=== PATIENT | female | born 1935 | race African-American/Black ===

== ENCOUNTER 2018-03-31 15:57 | Emergency (ER) | payer MEDICARE ==
[~2018-03-31] VITALS: Ht 170.2 cm; Wt 86.0 kg
[~2018-03-31 15:57] MED LIST: ALPR-392 PO; ASPI-1158 PO; FURO-152 PO; GABA-290 PO; METO-396; OLME1TAB14 PO; POTA10TA15 PO; TRAM50TA3 PO
[2018-03-31 22:02] VITALS: BP 166/64
== END 2018-03-31 22:00 | disposition home or self-care (01) ==
LOC: ER 15:57 → CANBEDREQ 22:11
DX: R60.0 Localized edema (principal); I11.0 Hypertensive heart disease with heart failure; I50.9 Heart failure, unspecified; S81.811A Laceration without foreign body, right lower leg, initial encounter; X58.XXXA Exposure to other specified factors, initial encounter; Y93.9 Activity, unspecified; Y92.9 Unspecified place or not applicable; M54.40 Lumbago with sciatica, unspecified side; E66.9 Obesity, unspecified; Z68.29 Body mass index [BMI] 29.0-29.9, adult; Z79.899 Other long term (current) drug therapy; Z88.8 Allergy status to other drugs, medicaments and biological substances; Z79.82 Long term (current) use of aspirin
CPT/HCPCS: 93970; 99284

== ENCOUNTER 2019-01-10 14:47 | Inpatient (IN) | payer MEDICARE, BC ==
[~2019-01-10] VITALS: Ht 172.7 cm; Wt 114.9 kg
[2019-01-10] VITALS (15 sets, daily range): BP systolic 95–144; BP diastolic 50–86
[~2019-01-10 14:47] MED LIST changes: +ACET-2178 PO; -ALPR-392 PO; -ASPI-1158 PO; +BETH5TAB10 PO; +CHOL200074 MT; -FURO-152 PO; -GABA-290 PO; -METO-396; -OLME1TAB14 PO; -POTA10TA15 PO; +TAMS-11 MT; -TRAM50TA3 PO
[2019-01-10] MEDS ORDERED: ACETAMINOPHEN 650MG SUPP PR STA (15:08)
[2019-01-10] MEDS ORDERED: PIPERACILLIN/TAZ 3.375G PREMIX 50 ML IV ONE (15:15)
[2019-01-10] MEDS ORDERED: VANCOMYCIN 1 G PREMIX 200 ML IV ONE (15:15)
[2019-01-10] MEDS ORDERED: HYDROCORTISONE SOD SUCCINATE 100 MG/2 ML VIAL IV ONE (15:15)
[2019-01-10] MEDS ORDERED: SODIUM CHLORIDE 0.9% 1000ML BAG (SEPSIS BOLUS) IV ONE (15:15)
[2019-01-10 15:35] LABS: HEMATOCRIT. 31.2 % (36.0-48.0); MEAN CORPUSCULAR HEMOGLOBIN 29.9 pg (28.0-32.0); MEAN CORPUSCULAR VOLUME 93.3 fL (81.0-99.0); MEAN PLATELET VOLUME 7.3 fl (7.4-10.4); PLATELET 277 x1000/uL (130-400); RED BLOOD CELL COUNT 3.34 mill/uL (4.2-5.4); RED CELL DISTRIBUTION WIDTH 15.1 % (11.6-14.6)
[2019-01-10 15:41] LABS: CHLORIDE 108 mEq/L (98-107)
[2019-01-10 15:42] LABS: INR 1.2; PROTHROMBIN TIME 12.6 sec (9.6-11.0)
[2019-01-10] MEDS ORDERED: KCL 20MEQ/100ML PREMIX 100 ML IV ONE ×2 (16:00→23:15)
[2019-01-10 16:23] LABS: CLARITY URINE CLOUDY (CLEAR); COLOR URINE YELLOW (YELLOW); KETONES URINE TRACE (NEGATIVE); LEUKOCYTE ESTERASE URINE 2+ (NEGATIVE); NITRITE URINE NEGATIVE (NEGATIVE); OCCULT BLOOD URINE TRACE (NEGATIVE); PH URINE 5.5 (4.5-8.0); PROTEIN URINE 1+ (NEGATIVE); SPECIFIC GRAVITY URINE 1.021 (1.005-1.030)
[2019-01-10 17:29] LABS: PLATELET ESTIMATE NORMAL
[2019-01-10 22:30] LABS: BG BASE EXCESS -4.2 mmol/L (-2.0-2.0); BG CARBOXYHEMOGLOBIN 0.4 % (0.5-1.5); BG DEOXYHEMOGLOBIN 3.1 % (0.0-5.0); BG FRACTION INSPIRED OXYGEN 21; BG HCO3 ACT 18.5 mmol/L (22.0-26.0); BG METHEMOGLOBIN 0.3 % (0.0-1.5); BG OXYGEN SATURATION 96.9 % (92.0-98.5); BG OXYHEMOGLOBIN 96.2 % (94.0-97.0); BG PCO2 27.4 mmHg (35.0-45.0); BG PH 7.448 (7.350-7.450); BG PO2 83.6 mmHg (75.0-100.0); BG SAMPLE SITE LEFT RADIAL; BG TOTAL HEMOGLOBIN 11.9 g/dL (12.0-18.0); BG VENT MODE ROOM AIR
[2019-01-10] MEDS ORDERED: MULT-230 MT (22:52)
[2019-01-10] MEDS ORDERED: BETH25TA MT (22:52)
[2019-01-10] MEDS ORDERED: ASCO-339 MT (22:52)
[2019-01-10] MEDS ORDERED: ZINC220T MT (22:52)
[2019-01-10] MEDS ORDERED: POTA25TA8 MT (22:52)
[2019-01-10] MEDS ORDERED: CHOL200059 MT (22:52)
[2019-01-10] MEDS ORDERED: IPRATROPIUM/ALBUTEROL 0.5-3(2.5)MG/3ML NEB INH PRN (23:00)
[2019-01-10] MEDS ORDERED: ONDANSETRON HCL 4MG/2ML INJ IV PRN (23:00)
[2019-01-10] MEDS ORDERED: VANCOMYCIN 1 G PREMIX 200 ML IV SCH (23:00)
[2019-01-10] MEDS ORDERED: POTASSIUM CHLORIDE INJ 40 MEQ in DEXT 5% WATER 500 ML IV ONE (23:15)
[2019-01-11] VITALS (94 sets, daily range): BP systolic 91–164; BP diastolic 38–97
[2019-01-11] MEDS: PIPERACILLIN/TAZ 3.375G PREMIX 50 ML IV SCH ×3 (00:10→16:08)
[2019-01-11] MEDS: DEXT 5%/0.45% NACL KCL 30MEQ/L 1,000 ML IV SCH ×2 (00:10→14:32)
[2019-01-11] MEDS ORDERED: DILTIAZEM HCL 5MG/ML 5ML VIAL IV NR (00:15)
[2019-01-11] MEDS: DILTIAZEM HCL 125 MG in DEXT 5% WATER 100 ML IV PRN ×3 (00:47→17:24)
[2019-01-11] MEDS ORDERED: POTASSIUM CHLORIDE INJ 40 MEQ in DEXT 5% WATER 500 ML IV NR ×2 (01:00→20:00)
[2019-01-11] MEDS ORDERED: VANCOMYCIN 1250MG in DEXTROSE 5% WATER 250ML IV NR (02:00)
[2019-01-11] MEDS: MORPHINE SULFATE 2 MG/ML CPJ (NOT FOR IM USE) IV PRN ×2 (02:09→15:17)
[2019-01-11 05:46] LABS: HEMATOCRIT. 29.1 % (36.0-48.0); HEMOGLOBIN. 9.7 g/dL (12.0-16.0); MEAN CORPUSCULAR HEMOGLOBIN 30.3 pg (28.0-32.0); MEAN CORPUSCULAR VOLUME 91.1 fL (81.0-99.0); MEAN PLATELET VOLUME 7.9 fl (7.4-10.4); PLATELET 260 x1000/uL (130-400); RED CELL DISTRIBUTION WIDTH 14.7 % (11.6-14.6)
[2019-01-11 05:50] LABS: CHLORIDE 107 mEq/L (98-107)
[2019-01-11 06:00] LABS: T4 FREE 1.52 ng/dL (0.76-1.46)
[2019-01-11] MEDS: ENOXAPARIN 40MG/0.4ML SYR SUBCUT SCH (08:09)
[2019-01-11] MEDS ORDERED: POTASSIUM CHLORIDE INJ 40 MEQ in DEXT 5% WATER 500 ML IV ONE (08:30)
[2019-01-11] MEDS ORDERED: KCL 20MEQ/100ML PREMIX 100 ML IV ONE (08:30)
[2019-01-11 09:35] LABS: PLATELET ESTIMATE NORMAL
[2019-01-11] MEDS ORDERED: POTASSIUM CHLORIDE INJ 60 MEQ in DEXT 5% WATER 500 ML IV SCH (10:00)
[2019-01-11] MEDS: ASPIRIN 81MG TABLET PO SCH (11:15)
[2019-01-11] MEDS ORDERED: LIDOCAINE HCL 1% 20ML VIAL (Pyxis) INJ ONE (11:55)
[2019-01-11] MEDS ORDERED: DIPHENHYDRAMINE 50MG/ML VIAL IV PRN (13:00)
[2019-01-11] MEDS ORDERED: HYDRALAZINE 20MG/ML VIAL IV PRN (13:00)
[2019-01-11] MEDS ORDERED: ACETAMINOPHEN 650MG SUPP PR PRN (13:00)
[2019-01-11] MEDS ORDERED: BISACODYL 10MG SUPP PR PRN (13:00)
[2019-01-11] MEDS ORDERED: GUAIFENESIN 200MG/10ML SUGAR FREE UDC PO PRN (13:00)
[2019-01-11] MEDS ORDERED: DEXTROSE 50% WATER 50ML SYRINGE IV PRN (13:15)
[2019-01-11 13:22] LABS: BG BASE EXCESS -2.8 mmol/L (-2.0-2.0); BG CARBOXYHEMOGLOBIN 0.3 % (0.5-1.5); BG DEOXYHEMOGLOBIN 2.5 % (0.0-5.0); BG FRACTION INSPIRED OXYGEN 21; BG METHEMOGLOBIN 0.2 % (0.0-1.5); BG OXYGEN SATURATION 97.5 % (92.0-98.5); BG PH 7.422 (7.350-7.450); BG PO2 93.1 mmHg (75.0-100.0); BG SAMPLE SITE LEFT RADIAL; BG TOTAL HEMOGLOBIN 10.3 g/dL (12.0-18.0); BG VENT MODE ROOM AIR
[2019-01-11] MEDS ORDERED: ENOXAPARIN 40MG/0.4ML SYR SUBCUT SCH (14:00)
[2019-01-11] MEDS: BLOOD SUGAR DIAGNOSTIC STRIP TEST SCH ×2 (16:07→20:59)
[2019-01-11] MEDS: INSULIN LISPRO 100 UNITS/ML SUBCUT SCH ×2 (16:07→20:59)
[2019-01-11] MEDS: DILTIAZEM HCL 30MG TABLET PO SCH (18:00)
[2019-01-11 22:03] LABS: *AMPHETAMINES SCREEN URINE NEGATIVE (NEGATIVE); *BARBITURATES SCREEN URINE NEGATIVE (NEGATIVE); *BENZODIAZEPINES SCREEN URINE PRESUMTIVE POSITIVE (NEGATIVE); *COCAINE SCREEN URINE NEGATIVE (NEGATIVE); CANNABINOID URINE SCREEN NEGATIVE (NEGATIVE); METHADONE URINE SCREEN NEGATIVE (NEGATIVE); OPIATES URINE SCREEN PRESUMTIVE POSITIVE (NEGATIVE); PHENCYCLIDINE URINE SCREEN NEGATIVE (NEGATIVE)
[2019-01-12] VITALS (72 sets, daily range): BP systolic 86–174; BP diastolic 39–104
[2019-01-12] MEDS: PIPERACILLIN/TAZ 3.375G PREMIX 50 ML IV SCH ×2 (00:24→08:28)
[2019-01-12] MEDS: DILTIAZEM HCL 30MG TABLET PO SCH ×4 (00:24→18:00)
[2019-01-12] MEDS: DEXT 5%/0.45% NACL KCL 30MEQ/L 1,000 ML IV SCH ×2 (00:24→16:33)
[2019-01-12] MEDS ORDERED: VANCOMYCIN 1 G PREMIX 200 ML IV SCH (02:00)
[2019-01-12 05:33] LABS: HEMATOCRIT. 28.2 % (36.0-48.0); HEMOGLOBIN. 9.3 g/dL (12.0-16.0); MEAN CORPUSCULAR VOLUME 91.3 fL (81.0-99.0); MEAN PLATELET VOLUME 8.2 fl (7.4-10.4); PLATELET 211 x1000/uL (130-400); RED BLOOD CELL COUNT 3.09 mill/uL (4.2-5.4); RED CELL DISTRIBUTION WIDTH 15.1 % (11.6-14.6)
[2019-01-12] MEDS: INSULIN LISPRO 100 UNITS/ML SUBCUT SCH ×5 (05:37→21:00)
[2019-01-12] MEDS: BLOOD SUGAR DIAGNOSTIC STRIP TEST SCH ×4 (05:37→20:55)
[2019-01-12] MEDS: MORPHINE SULFATE 2 MG/ML CPJ (NOT FOR IM USE) IV PRN ×2 (06:03→10:17)
[2019-01-12 06:06] LABS: CHLORIDE 109 mEq/L (98-107)
[2019-01-12 06:15] LABS: CREATINE KINASE 58 IU/L (26-192); HDL CHOLESTEROL 20 mg/dL (40-59); LDL CHOLESTEROL 51 mg/dL (5-100)
[2019-01-12] MEDS: ENOXAPARIN 40MG/0.4ML SYR SUBCUT SCH (08:28)
[2019-01-12] MEDS: ASPIRIN 81MG TABLET PO SCH (08:28)
[2019-01-12] MEDS: DILTIAZEM HCL 125 MG in DEXT 5% WATER 100 ML IV PRN (09:13)
[2019-01-12] MEDS: ACETAMINOPHEN 325MG TABLET PO PRN (09:15)
[2019-01-12 12:45] LABS: NUCLEATED RED BLOOD CELLS 1 /100 WBC; PLATELET ESTIMATE NORMAL
[2019-01-12] MEDS: CEFAZOLIN 2,000 MG in DEXT 5% WATER 100 ML IV SCH ×2 (14:15→22:41)
[2019-01-12] MEDS ORDERED: ENOXAPARIN 40MG/0.4ML SYR SUBCUT NR (15:15)
[2019-01-12] MEDS: ENOXAPARIN 80MG/0.8ML SYR SUBCUT SCH (22:29)
[2019-01-13] VITALS (13 sets, daily range): BP systolic 97–152; BP diastolic 47–80
[2019-01-13] MEDS: DILTIAZEM HCL 30MG TABLET PO SCH ×5 (00:16→23:37)
[2019-01-13] MEDS: DEXT 5%/0.45% NACL KCL 30MEQ/L 1,000 ML IV SCH ×2 (06:16→19:53)
[2019-01-13] MEDS: CEFAZOLIN 2,000 MG in DEXT 5% WATER 100 ML IV SCH ×3 (06:17→21:12)
[2019-01-13] MEDS: BLOOD SUGAR DIAGNOSTIC STRIP TEST SCH ×4 (06:22→20:52)
[2019-01-13] MEDS: INSULIN LISPRO 100 UNITS/ML SUBCUT SCH ×4 (07:20→20:52)
[2019-01-13 07:55] LABS: HEMATOCRIT. 26.8 % (36.0-48.0); LYMPHOCYTES % 8.7 % (20.0-50.0); MEAN CORPUSCULAR HEMOGLOBIN 30.3 pg (28.0-32.0); MEAN CORPUSCULAR VOLUME 90.8 fL (81.0-99.0); MEAN PLATELET VOLUME 8.3 fl (7.4-10.4); MONOCYTES % 9.6 % (2.0-8.0); NEUTROPHILS % 79.7 % (40.0-76.0); PLATELET 206 x1000/uL (130-400); RED BLOOD CELL COUNT 2.96 mill/uL (4.2-5.4); RED CELL DISTRIBUTION WIDTH 15.3 % (11.6-14.6)
[2019-01-13 08:26] LABS: CHLORIDE 109 mEq/L (98-107)
[2019-01-13] MEDS: ASPIRIN 81MG TABLET PO SCH (09:08)
[2019-01-13] MEDS: ZINC SULFATE 220 MG ( 50 ) CAPSULE PO SCH (09:08)
[2019-01-13] MEDS: ASCORBIC ACID 500 MG TABLET PO SCH (09:08)
[2019-01-13] MEDS: ENOXAPARIN 80MG/0.8ML SYR SUBCUT SCH ×2 (09:09→21:13)
[2019-01-13] MEDS: ACETAMINOPHEN 325MG TABLET PO PRN (10:00)
[2019-01-13] MEDS: HYDROCODONE/ACETAMINOPHEN 5/325MG TABLET PO PRN ×2 (12:27→22:10)
[2019-01-13] MEDS: NYSTATIN POWDER 15GM TOP SCH (17:58)
[2019-01-13] MEDS: GABAPENTIN 100MG CAPSULE PO SCH (17:58)
[2019-01-14] VITALS (18 sets, daily range): BP systolic 108–141; BP diastolic 54–81
[2019-01-14] MEDS: DILTIAZEM HCL 30MG TABLET PO SCH ×2 (05:55→17:54)
[2019-01-14] MEDS: CEFAZOLIN 2,000 MG in DEXT 5% WATER 100 ML IV SCH ×3 (05:55→21:24)
[2019-01-14 06:12] LABS: HEMATOCRIT 29.4 % (36.0-48.0); HEMOGLOBIN 9.6 g/dL (12.0-16.0); MEAN CORPUSCULAR HEMOGLOBIN 29.9 pg (28.0-32.0); MEAN CORPUSCULAR VOLUME 91.4 fL (81.0-99.0); PLATELET 199 x1000/uL (130-400); RED BLOOD CELL COUNT 3.22 mill/uL (4.2-5.4); RED CELL DISTRIBUTION WIDTH 15.6 % (11.6-14.6)
[2019-01-14] MEDS: BLOOD SUGAR DIAGNOSTIC STRIP TEST SCH ×4 (06:12→20:55)
[2019-01-14] MEDS: INSULIN LISPRO 100 UNITS/ML SUBCUT SCH ×4 (06:13→20:55)
[2019-01-14 06:14] LABS: CHLORIDE 109 mEq/L (98-107)
[2019-01-14] MEDS: HYDROCODONE/ACETAMINOPHEN 5/325MG TABLET PO PRN ×3 (07:04→21:36)
[2019-01-14] MEDS: NYSTATIN POWDER 15GM TOP SCH ×2 (09:00→17:24)
[2019-01-14] MEDS: ASPIRIN 81MG TABLET PO SCH (09:47)
[2019-01-14] MEDS: ASCORBIC ACID 500 MG TABLET PO SCH (09:47)
[2019-01-14] MEDS: GABAPENTIN 100MG CAPSULE PO SCH ×2 (09:47→17:53)
[2019-01-14] MEDS: ZINC SULFATE 220 MG ( 50 ) CAPSULE PO SCH (09:47)
[2019-01-14] MEDS: ENOXAPARIN 80MG/0.8ML SYR SUBCUT SCH ×2 (09:48→21:24)
[2019-01-14] MEDS: DEXT 5%/0.45% NACL KCL 30MEQ/L 1,000 ML IV SCH (10:00)
[2019-01-14] MEDS ORDERED: DILTIAZEM HCL 30MG TABLET PO SCH (12:00)
[2019-01-14 16:46] LABS: CLARITY URINE CLEAR (CLEAR); COLOR URINE YELLOW (YELLOW); KETONES URINE NEGATIVE (NEGATIVE); LEUKOCYTE ESTERASE URINE TRACE (NEGATIVE); NITRITE URINE NEGATIVE (NEGATIVE); OCCULT BLOOD URINE NEGATIVE (NEGATIVE); PROTEIN URINE 1+ (NEGATIVE); SPECIFIC GRAVITY URINE 1.019 (1.005-1.030)
[2019-01-14] MEDS: PIPERACILLIN/TAZOBACTAM 3.375 G in DEXT 5% WATER 100 ML IV SCH (21:24)
[2019-01-14] MEDS: DILTIAZEM HCL 5MG/ML 5ML VIAL IV PRN (21:42)
[2019-01-15] VITALS (17 sets, daily range): BP systolic 96–123; BP diastolic 48–73
[2019-01-15] MEDS: MORPHINE SULFATE 2 MG/ML CPJ (NOT FOR IM USE) IV PRN (01:36)
[2019-01-15] MEDS: DILTIAZEM HCL 5MG/ML 5ML VIAL IV PRN ×2 (01:37→16:51)
[2019-01-15] MEDS: PIPERACILLIN/TAZOBACTAM 3.375 G in DEXT 5% WATER 100 ML IV SCH ×3 (05:15→20:15)
[2019-01-15] MEDS: CEFAZOLIN 2,000 MG in DEXT 5% WATER 100 ML IV SCH ×3 (05:15→20:15)
[2019-01-15] MEDS: INSULIN LISPRO 100 UNITS/ML SUBCUT SCH ×4 (05:16→20:24)
[2019-01-15] MEDS: DILTIAZEM HCL 30MG TABLET PO SCH ×4 (05:16→17:53)
[2019-01-15] MEDS: BLOOD SUGAR DIAGNOSTIC STRIP TEST SCH ×4 (05:16→20:16)
[2019-01-15 06:40] LABS: HEMATOCRIT. 26.9 % (36.0-48.0); HEMOGLOBIN. 8.9 g/dL (12.0-16.0); MEAN CORPUSCULAR HEMOGLOBIN 29.8 pg (28.0-32.0); MEAN CORPUSCULAR VOLUME 90.4 fL (81.0-99.0); MEAN PLATELET VOLUME 7.6 fl (7.4-10.4); PLATELET 211 x1000/uL (130-400); RED BLOOD CELL COUNT 2.98 mill/uL (4.2-5.4); RED CELL DISTRIBUTION WIDTH 15.6 % (11.6-14.6)
[2019-01-15 06:46] LABS: CHLORIDE 110 mEq/L (98-107)
[2019-01-15] MEDS: ENOXAPARIN 80MG/0.8ML SYR SUBCUT SCH ×2 (08:46→20:16)
[2019-01-15] MEDS: ASCORBIC ACID 500 MG TABLET PO SCH (08:47)
[2019-01-15] MEDS: ASPIRIN 81MG TABLET PO SCH (08:47)
[2019-01-15] MEDS: NYSTATIN POWDER 15GM TOP SCH ×2 (08:47→16:30)
[2019-01-15] MEDS: ZINC SULFATE 220 MG ( 50 ) CAPSULE PO SCH (08:47)
[2019-01-15] MEDS: GABAPENTIN 100MG CAPSULE PO SCH ×2 (08:47→16:23)
[2019-01-15] MEDS ORDERED: MAGNESIUM 1 G PREMIX 100 ML IV NR (12:00)
[2019-01-15 13:30] LABS: PLATELET ESTIMATE NORMAL
[2019-01-15] MEDS: HYDROCODONE/ACETAMINOPHEN 5/325MG TABLET PO PRN (16:29)
[2019-01-16] VITALS (21 sets, daily range): BP systolic 62–159; BP diastolic 47–75
[2019-01-16] MEDS: DILTIAZEM HCL 5MG/ML 5ML VIAL IV PRN (04:55)
[2019-01-16] MEDS: BLOOD SUGAR DIAGNOSTIC STRIP TEST SCH ×4 (05:16→19:42)
[2019-01-16] MEDS: CEFAZOLIN 2,000 MG in DEXT 5% WATER 100 ML IV SCH ×3 (05:16→20:08)
[2019-01-16] MEDS: DILTIAZEM HCL 30MG TABLET PO SCH ×5 (05:36→23:05)
[2019-01-16] MEDS: INSULIN LISPRO 100 UNITS/ML SUBCUT SCH ×4 (05:36→20:08)
[2019-01-16 06:42] LABS: CHLORIDE 109 mEq/L (98-107)
[2019-01-16 06:46] LABS: HEMOGLOBIN 9.8 g/dL (12.0-16.0); MEAN CORPUSCULAR HEMOGLOBIN 29.8 pg (28.0-32.0); PLATELET 223 x1000/uL (130-400); RED CELL DISTRIBUTION WIDTH 15.7 % (11.6-14.6)
[2019-01-16] MEDS: ZINC SULFATE 220 MG ( 50 ) CAPSULE PO SCH (08:36)
[2019-01-16] MEDS: ASPIRIN 81MG TABLET PO SCH (08:36)
[2019-01-16] MEDS: ASCORBIC ACID 500 MG TABLET PO SCH (08:36)
[2019-01-16] MEDS: GABAPENTIN 100MG CAPSULE PO SCH ×2 (08:36→17:07)
[2019-01-16] MEDS: NYSTATIN POWDER 15GM TOP SCH ×2 (08:39→17:05)
[2019-01-16] MEDS: ENOXAPARIN 80MG/0.8ML SYR SUBCUT SCH ×2 (08:39→20:08)
[2019-01-16] MEDS: HYDROCODONE/ACETAMINOPHEN 5/325MG TABLET PO PRN ×3 (09:29→23:04)
[2019-01-16] MEDS: NEBIVOLOL HCL 5 MG TABLET PO SCH (09:45)
[2019-01-16] MEDS ORDERED: DIGOXIN 500MCG/2ML AMP IV ONE (11:45)
[2019-01-16] MEDS ORDERED: DIGOXIN 500MCG/2ML AMP IV PRN (15:00)
[2019-01-17] VITALS (16 sets, daily range): BP systolic 66–141; BP diastolic 28–81
[2019-01-17] MEDS: BLOOD SUGAR DIAGNOSTIC STRIP TEST SCH ×4 (05:44→19:24)
[2019-01-17] MEDS: INSULIN LISPRO 100 UNITS/ML SUBCUT SCH ×4 (05:44→20:58)
[2019-01-17] MEDS: CEFAZOLIN 2,000 MG in DEXT 5% WATER 100 ML IV SCH ×3 (05:48→20:57)
[2019-01-17] MEDS: DILTIAZEM HCL 30MG TABLET PO SCH (05:48)
[2019-01-17 08:11] LABS: HEMATOCRIT 31.2 % (36.0-48.0); HEMOGLOBIN 10.3 g/dL (12.0-16.0); MEAN CORPUSCULAR HEMOGLOBIN 29.9 pg (28.0-32.0); MEAN CORPUSCULAR VOLUME 90.9 fL (81.0-99.0); PLATELET 229 x1000/uL (130-400); RED BLOOD CELL COUNT 3.43 mill/uL (4.2-5.4); RED CELL DISTRIBUTION WIDTH 15.7 % (11.6-14.6)
[2019-01-17] MEDS: ASPIRIN 81MG TABLET PO SCH (08:36)
[2019-01-17] MEDS: ASCORBIC ACID 500 MG TABLET PO SCH (08:37)
[2019-01-17] MEDS: GABAPENTIN 100MG CAPSULE PO SCH ×2 (08:37→17:00)
[2019-01-17] MEDS: NYSTATIN POWDER 15GM TOP SCH ×2 (08:37→17:14)
[2019-01-17] MEDS: ENOXAPARIN 80MG/0.8ML SYR SUBCUT SCH ×2 (08:37→20:58)
[2019-01-17 08:38] LABS: CHLORIDE 107 mEq/L (98-107)
[2019-01-17] MEDS: NEBIVOLOL HCL 5 MG TABLET PO SCH (08:38)
[2019-01-17] MEDS: ZINC SULFATE 220 MG ( 50 ) CAPSULE PO SCH (08:38)
[2019-01-17] MEDS: DILTIAZEM HCL 90MG TABLET PO SCH ×2 (12:00→18:05)
[2019-01-17] MEDS: HYDROCODONE/ACETAMINOPHEN 5/325MG TABLET PO PRN (20:59)
[2019-01-18] VITALS (17 sets, daily range): BP systolic 97–144; BP diastolic 47–78
[2019-01-18] MEDS: BLOOD SUGAR DIAGNOSTIC STRIP TEST SCH ×4 (05:51→20:24)
[2019-01-18] MEDS: CEFAZOLIN 2,000 MG in DEXT 5% WATER 100 ML IV SCH ×3 (06:00→20:24)
[2019-01-18] MEDS: DILTIAZEM HCL 90MG TABLET PO SCH ×4 (06:03→17:34)
[2019-01-18] MEDS: INSULIN LISPRO 100 UNITS/ML SUBCUT SCH ×4 (07:20→21:00)
[2019-01-18] MEDS: ASPIRIN 81MG TABLET PO SCH (10:12)
[2019-01-18] MEDS: GABAPENTIN 100MG CAPSULE PO SCH ×2 (10:12→17:32)
[2019-01-18] MEDS: ZINC SULFATE 220 MG ( 50 ) CAPSULE PO SCH (10:12)
[2019-01-18] MEDS: NEBIVOLOL HCL 5 MG TABLET PO SCH (10:12)
[2019-01-18] MEDS: ASCORBIC ACID 500 MG TABLET PO SCH (10:13)
[2019-01-18] MEDS: ENOXAPARIN 80MG/0.8ML SYR SUBCUT SCH ×2 (10:16→20:24)
[2019-01-18] MEDS: NYSTATIN POWDER 15GM TOP SCH ×2 (10:23→17:47)
[2019-01-18] MEDS: HYDROCODONE/ACETAMINOPHEN 5/325MG TABLET PO PRN (10:24)
[2019-01-18] MEDS ORDERED: DIGOXIN 500MCG/2ML AMP IV NR (11:00)
[2019-01-18] MEDS: DIGOXIN 500MCG/2ML AMP IV SCH ×3 (12:31→18:24)
[2019-01-18] MEDS ORDERED: HYDRALAZINE HCL 25MG TABLET PO SCH (22:00)
[2019-01-19] VITALS (14 sets, daily range): BP systolic 90–150; BP diastolic 46–80
[2019-01-19] MEDS: DILTIAZEM HCL 90MG TABLET PO SCH ×4 (00:38→16:44)
[2019-01-19] MEDS: ACETAMINOPHEN 325MG TABLET PO PRN (00:39)
[2019-01-19] MEDS: CEFAZOLIN 2,000 MG in DEXT 5% WATER 100 ML IV SCH ×2 (04:48→14:20)
[2019-01-19] MEDS: BLOOD SUGAR DIAGNOSTIC STRIP TEST SCH ×3 (04:49→16:40)
[2019-01-19] MEDS: INSULIN LISPRO 100 UNITS/ML SUBCUT SCH (06:47)
[2019-01-19] MEDS: GABAPENTIN 100MG CAPSULE PO SCH ×2 (10:00→16:45)
[2019-01-19] MEDS: ASPIRIN 81MG TABLET PO SCH (10:00)
[2019-01-19] MEDS: ASCORBIC ACID 500 MG TABLET PO SCH (10:00)
[2019-01-19] MEDS: ZINC SULFATE 220 MG ( 50 ) CAPSULE PO SCH (10:00)
[2019-01-19] MEDS: NYSTATIN POWDER 15GM TOP SCH ×2 (10:01→16:44)
[2019-01-19] MEDS: ENOXAPARIN 80MG/0.8ML SYR SUBCUT SCH (10:01)
[2019-01-19] MEDS: NEBIVOLOL HCL 5 MG TABLET PO SCH (10:01)
[2019-01-19] MEDS ORDERED: HYDROCODONE/ACETAMINOPHEN 5/325MG TABLET PO PRN ×2 (11:15→12:15)
[2019-01-19] MEDS ORDERED: NEBIVOLOL HCL 5 MG TABLET PO NR (11:15)
[2019-01-19 14:35] LABS: HEMATOCRIT. 26.5 % (36.0-48.0); HEMOGLOBIN. 8.7 g/dL (12.0-16.0); MEAN CORPUSCULAR HEMOGLOBIN 29.9 pg (28.0-32.0); MEAN PLATELET VOLUME 8.4 fl (7.4-10.4); PLATELET 245 x1000/uL (130-400); RED BLOOD CELL COUNT 2.91 mill/uL (4.2-5.4); RED CELL DISTRIBUTION WIDTH 15.9 % (11.6-14.6)
[2019-01-19 14:46] LABS: CHLORIDE 105 mEq/L (98-107)
[2019-01-19 15:06] LABS: DIGOXIN 1.4 ng/mL (0.9-2.0)
[2019-01-19 17:26] LABS: PLATELET ESTIMATE NORMAL
[2019-01-19] MEDS ORDERED: DIGOXIN 125MCG TABLET PO SCH (18:00)
[2019-01-19] MEDS ORDERED: NEBIVOLOL HCL 5 MG TABLET PO SCH (21:00)
== END 2019-01-19 20:50 | DRG 871 ==
LOC: ER 14:47 → MICUSO 17:11 → EDBEDREQSVC 17:20 → EDBEDREQTM 17:20 → EDBEDREQ 17:20 → ENRESERV 19:10 → 3WST 01-12 17:08
PROVIDERS: ADMIT Internal Medicine; ATTEND Internal Medicine
PROC: 05HY33Z Insertion of Infusion Device into Upper Vein, Percutaneous Approach (ICD-10-PCS; principal; 2019-01-11)
PROC: B54MZZA Ultrasonography of Right Upper Extremity Veins, Guidance (ICD-10-PCS; 2019-01-11)
DX: A41.59 Other Gram-negative sepsis (principal); I21.4 Non-ST elevation (NSTEMI) myocardial infarction; I33.0 Acute and subacute infective endocarditis; J96.90 Respiratory failure, unspecified, unspecified whether with hypoxia or hypercapnia; N39.0 Urinary tract infection, site not specified; G93.40 Encephalopathy, unspecified; D68.59 Other primary thrombophilia; I13.0 Hypertensive heart and chronic kidney disease with heart failure and stage 1 through stage 4 chronic kidney disease, or unspecified chronic kidney disease; E87.2 Acidosis; I48.1 Persistent atrial fibrillation; J98.11 Atelectasis; D64.9 Anemia, unspecified; E87.6 Hypokalemia; E11.22 Type 2 diabetes mellitus with diabetic chronic kidney disease; N18.9 Chronic kidney disease, unspecified; E11.51 Type 2 diabetes mellitus with diabetic peripheral angiopathy without gangrene; G40.909 Epilepsy, unspecified, not intractable, without status epilepticus; E11.40 Type 2 diabetes mellitus with diabetic neuropathy, unspecified; K83.8 Other specified diseases of biliary tract; M48.061 Spinal stenosis, lumbar region without neurogenic claudication; Z66 Do not resuscitate; I50.9 Heart failure, unspecified; I34.2 Nonrheumatic mitral (valve) stenosis; F41.9 Anxiety disorder, unspecified; E66.9 Obesity, unspecified; E11.65 Type 2 diabetes mellitus with hyperglycemia; R33.9 Retention of urine, unspecified; B96.89 Other specified bacterial agents as the cause of diseases classified elsewhere; B95.61 Methicillin susceptible Staphylococcus aureus infection as the cause of diseases classified elsewhere; Z90.710 Acquired absence of both cervix and uterus; Z90.49 Acquired absence of other specified parts of digestive tract; Z98.891 History of uterine scar from previous surgery; Z86.14 Personal history of Methicillin resistant Staphylococcus aureus infection; Z88.8 Allergy status to other drugs, medicaments and biological substances; Z98.49 Cataract extraction status, unspecified eye; Z68.38 Body mass index [BMI] 38.0-38.9, adult; Z79.899 Other long term (current) drug therapy
CPT/HCPCS: 36415; 36600; 71045; 74176; 76937; 80048; 80061; 80162; 80305; 82140; 82375; 82550; 82553; 82805; 82962; 83605; 83735; 83880; 84132; 84145; 84439; 84443; 84484; 85027; 85651; 86140; 87077; 87186; 92610; 93005; 93306; 93923; 93970; 97110; 97163; 97167; 99285; A6261; C1725; J0690; J1160; J1650; J1720; J2270; J2543; J3370; J3475; J3480; J3490; J7030; J7040; J7060